=== PATIENT | male | born 1980 | race Caucasian/White ===

== ENCOUNTER 2025-06-02 10:18 | Emergency (ER) | payer SELFPAY ==
[2025-06-02 10:20] VITALS: BP 146/89; PULSE 97; RESP 16; TEMP 36.6; O2SAT 99; BMI 29.5
[2025-06-02 10:24] VITALS: BP 142/85; PULSE 90; RESP 16; O2SAT 98
--- OUTSIDE RECORDS SUMMARY | 2025-06-02 10:28 | XMS_ITS | Encounter Summary ---
Author Organization [facility] Address [address] [place] [address] Care Team Providers Care Legal Examiner Name Role Phone Unavailable Primary Care Provider Unavailabl e Encounter Details Date Type Department Care Team (Latest Contact Info) Description 08/05/2000 Outpatient Historical [facility] [address] [address] [place] [phone] Polina Hair, DO [address] [place] [address] Contusion of finger (Primary Dx) Social History Tobacco Use Types Packs/Day Years Used Date Smoking Tobacco: Never Assessed Sex and Gender Information Value Date Recorded Sex Assigned at Not on file Legal Sex Male 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
--- OUTSIDE RECORDS SUMMARY | 2025-06-02 10:28 | XMS_ITS | Encounter Summary ---
Author Organization [facility] Address [address] [place] [address] Care Team Providers Care Welder Setter Resistance Machine Name Role Phone Unavailable Primary Care Provider Unavailabl e Encounter Details Date Type Department Care Team (Latest Contact Info) Description 09/01/2004 Outpatient Historical [facility] Family Medicine [facility] [address] [place] [address] [place], CAS NO ADDRESS ON FILE STREP SORE THROAT (Primary Dx) Social History Tobacco Use Types Packs/Day Years Used Date Smoking Tobacco: Never Assessed Sex and Gender Information Value Date Recorded Sex Assigned at Not on file Legal Sex Male 5:54 AM RN ACUTE Gender Identity Not on file Sexual Orientation Not on file documented as of this encounter Plan of Treatment Not on file documented as of this encounter Visit Diagnoses Diagnosis Streptococcal sore throat- Primary documented in this encounter
--- OUTSIDE RECORDS SUMMARY | 2025-06-02 10:28 | XMS_ITS | Encounter Summary ---
Author Organization [facility] Address [address] [place] [address] Care Team Providers Care Orthoptist Name Role Phone Unavailable Primary Care Provider Unavailabl e Encounter Details Date Type Department Care Team (Latest Contact Info) Description 01/14/1999 Outpatient Historical [facility] Family Medicine [facility] [address] [phone] John Bhardwaj MD NO ADDRESS ON FILE Other specified examination (Primary Dx) Social History Tobacco Use Types Packs/Day Years Used Date Smoking Tobacco: Never Assessed Sex and Gender Information Value Date Recorded Sex Assigned at Not on file Legal Sex Male 5:54 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
--- OUTSIDE RECORDS SUMMARY | 2025-06-02 10:28 | XMS_ITS | Encounter Summary ---
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
--- OUTSIDE RECORDS SUMMARY | 2025-06-02 10:28 | XMS_ITS | Encounter Summary ---
Author Organization [facility] Address [address] [place] [address] Care Team Providers Care Pump Servicer Supervisor Name Role Phone Unavailable Primary Care Provider Unavailabl e Encounter Details Date Type Department Care Team (Latest Contact Info) Description 01/19/2001 Outpatient Historical [facility] Family Medicine [facility] [address] [phone] John Bhardwaj MD NO ADDRESS ON FILE Routine child health exam (Primary Dx) Social History Tobacco Use Types Packs/Day Years Used Date Smoking Tobacco: Never Assessed Sex and Gender Information Value Date Recorded Sex Assigned at Not on file Legal Sex Male 5:54 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
--- OUTSIDE RECORDS SUMMARY | 2025-06-02 10:28 | XMS_ITS | Encounter Summary ---
Author Organization [facility] Address [address] [place] [address] Care Team Providers Care Literary Agent Name Role Phone Unavailable Primary Care Provider Unavailabl e Encounter Details Date Type Department Care Team (Latest Contact Info) Description 08/16/2001 Outpatient Historical [facility] Family Medicine [facility] [address] [address] [place] [phone] Polina Hair, DO [address] [place] [address] Unspecified contusion of eye (Primary Dx) Social History Tobacco Use Types Packs/Day Years Used Date Smoking Tobacco: Never Assessed Sex and Gender Information Value Date Recorded Sex Assigned at Not on file Legal Sex Male 5:54 AM CARNIVAL WORKER Gender Identity Not on file Sexual Orientation Not on file documented as of this encounter Plan of Treatment Not on file documented as of this encounter Visit Diagnoses Diagnosis Unspecified contusion of eye- Primary documented in this encounter
--- OUTSIDE RECORDS SUMMARY | 2025-06-02 10:28 | XMS_ITS | Encounter Summary ---
Author Organization [facility] Address [address] [place] [address] Care Team Providers Care Data Warehouse Specialist Name Role Phone Unavailable Primary Care Provider Unavailabl e Encounter Details Date Type Department Care Team (Latest Contact Info) Description 04/21/2001 Outpatient Historical [facility] Silvestre Santana MD NO ADDRESS ON FILE Tear of medial cartilage or meniscus of knee, current (Primary Dx) Social History Tobacco Use Types Packs/Day Years Used Date Smoking Tobacco: Never Assessed Sex and Gender Information Value Date Recorded Sex Assigned at Not on file Legal 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
--- OUTSIDE RECORDS SUMMARY | 2025-06-02 10:28 | XMS_ITS | Encounter Summary ---
Author Organization [facility] Address [address] [place] [address] Care Team Providers Care Lab Tester Name Role Phone Unavailable Primary Care Provider Unavailabl e Encounter Details Date Type Department Care Team (Latest Contact Info) Description 05/16/2001 Outpatient Historical [facility] Silvestre Santana MD NO ADDRESS ON FILE Plica syndrome (Primary Dx); Tear of medial cartilage or meniscus of knee, current Social History Tobacco Use Types Packs/Day Years Used Date Smoking Tobacco: Never Assessed Sex and Gender Information Value Date Recorded Sex Assigned at Not on file Legal 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
--- OUTSIDE RECORDS SUMMARY | 2025-06-02 10:28 | XMS_ITS | Encounter Summary ---
Author Organization [facility] Address [address] [place] [address] Care Team Providers Care Eligibility Specialist Name Role Phone Unavailable Primary Care Provider Unavailabl e Encounter Details Date Type Department Care Team (Latest Contact Info) Description 01/22/2000 Outpatient Historical [facility] Family Medicine [facility] [address] [phone] John Bhardwaj MD NO ADDRESS ON FILE Other general medical examination for administrative purposes (Primary Dx) Social History Tobacco Use Types Packs/Day Years Used Date Smoking Tobacco: Never Assessed Sex and Gender Information Value Date Recorded Sex Assigned at Not on file Legal 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
--- OUTSIDE RECORDS SUMMARY | 2025-06-02 10:28 | XMS_ITS | Encounter Summary ---
Author Organization [facility] Address [address] [place] [address] Care Team Providers Care Placement Interviewer Name Role Phone Unavailable Primary Care Provider Unavailabl e Encounter Details Date Type Department Care Team (Latest Contact Info) Description 09/16/2000 Outpatient Historical [facility] Family Medicine Elise [facility] [address] [address] [place] [phone] Polina Hair, DO [address] [place] [address] Allergy, unspecified not elsewhere classified (Primary Dx) Social History Tobacco Use Types Packs/Day Years Used Date Smoking Tobacco: Never Assessed Sex and Gender Information Value Date Recorded Sex Assigned at Not on file Legal Sex Male 5:54 AM HEALTH NURSE Gender Identity Not on file Sexual Orientation Not on file documented as of this encounter Plan of Treatment Not on file documented as of this encounter Visit Diagnoses Diagnosis Allergy, unspecified not elsewhere classified- Primary documented in this encounter
--- OUTSIDE RECORDS SUMMARY | 2025-06-02 10:28 | XMS_ITS | Encounter Summary ---
Author Organization [facility] Address [address] [place] [address] Care Team Providers Care Mock Up Maker Name Role Phone Unavailable Primary Care Provider Unavailabl e Encounter Details Date Type Department Care Team (Latest Contact Info) Description 02/15/2001 Outpatient Historical [facility] Family Medicine [facility] [address] [phone] John Bhardwaj MD NO ADDRESS ON FILE Osteomalacia, unspecified (Primary Dx) Social History Tobacco Use Types Packs/Day Years Used Date Smoking Tobacco: Never Assessed Sex and Gender Information Value Date Recorded Sex Assigned at Not on file Legal Sex Male 5:54 AM MOTORIZED SQUAD CAPTAIN Gender Identity Not on file Sexual Orientation Not on file documented as of this encounter Plan of Treatment Not on file documented as of this encounter Visit Diagnoses Diagnosis Osteomalacia, unspecified- Primary documented in this encounter
--- OUTSIDE RECORDS SUMMARY | 2025-06-02 10:28 | XMS_ITS | Encounter Summary ---
Author Organization [facility] Address [address] [place] [address] Care Team Providers Care Claims Adjuster Name Role Phone Unavailable Primary Care Provider Unavailabl e Encounter Details Date Type Department Care Team (Latest Contact Info) Description 04/04/2001 Outpatient Historical [facility] Silvestre Santana MD NO ADDRESS ON FILE Pain in joint, lower leg (Primary Dx) Social History Tobacco Use Types Packs/Day Years Used Date Smoking Tobacco: Never Assessed Sex and Gender Information Value Date Recorded Sex Assigned at Not on file Legal Sex Male 5:54 AM SOFTWARE ANALYST Gender Identity Not on file Sexual Orientation Not on file documented as of this encounter Plan of Treatment Not on file documented as of this encounter Visit Diagnoses Diagnosis Pain in joint, lower leg- Primary documented in this encounter
--- OUTSIDE RECORDS SUMMARY | 2025-06-02 10:28 | XMS_ITS | Clinical Summary ---
Author Organization [facility] Address [address] [facility] Attn: Epic Prelude ADT [place] [address] Care Team Providers Care Event Crew Technician Name Role Phone Unavailable Primary Care Provider Unavailabl e Allergies Active Allergy Reactions Criticality Noted Date Comments Chloroxine Other (See Comments) 09/23/2009 Numbness and tingling in face Peanut Hives High 05/29/2019 Propoxyphene N-Acetaminophen Nausea and Vomiting Low 09/16/2009 Medications No known medications Active Problems Problem Noted Date Diagnosed Date COVID-19 virus detected 05/28/2022 Suicidal ideation 05/31/2019 Polysubstance abuse 05/31/2019 Overview (05/28/2022): Smokes marijuana and methamphetamine. Last IV drug use was 1 year ago Major depressive disorder, r ecurrent severe without psychotic features 12/16/2018 Hypertension Seizure disorder Hyperlipidemia Resolved Problems Problem Noted Date Diagnosed Date Resolved Date Severe sepsis without septic shock 05/27/2022 05/31/2022 EVERARDO (acute kidney injury) 05/27/2022 Transaminitis 05/27/2022 05/31/2022 Immunizations Immunization Administration Dates Next Due (TDVAX)(7 YRS UP) TETANUS AN D DIPHTHERIA TOXOIDS, ADSORBED (2 LF OF TETANUS TOXOID AND 2 LF OF DIPHTHERIA TOXOID), 0.5ML (PF), IM 03/12/1998 Influenza Seasonal Unspecified Formulation IM Family History Medical History Relation Name Comments Heart Disease Brother Asthma Father Heart Disease Father Hypertension Father Diabetes Mother Relation Name Status Comments Brother Father Mother Social History Tobacco Use Types Packs/Day Years Used Date Smoking Tobacco: Every Day Cigarettes Smokeless Tobacco: Never Alcohol Use Standard Drinks/Week Comments No 0 (1 standard drink = 0.6 oz pur e alcohol) Sex and Gender Information Value Date Recorded Sex Assigned at Not on file Legal Sex Male 6:28 AM POWER AND RECOVERY SUPERVISOR Gender Identity Not on file Sexual Orientation Not on file Last Filed Vital Signs Vital Sign Reading Time Taken Comments Blood Pressure 110/78 05/31/2022 7:58 AM CDT Pulse 71 05/31/2022 7:58 AM CDT Temperature 36.7 C (98 F) 05/31/2022 7:58 AM CDT Respiratory Rate 21 05/31/2022 7:58 AM CDT Oxygen Saturation 98% 05/31/2022 7:58 AM CDT Inhaled Oxygen Concentration - - Weight 86.9 kg (191 lb 8 oz) 05/31/2022 6:00 AM CDT Height 175.3 cm (5' 9 ) 05/31/2022 6:00 AM CDT Body Mass Index 28.28 05/31/2022 6:00 AM CDT Plan of Treatment Health Maintenance Due Date Last Done Comments DTAP/TDAP/TD VACCINES (2 - Tdap) 03/13/1998 03/12/1998 HEPATITIS B VACCINES (1 of 3 - 19+ 3-dose series) 2001 COVID-19 Vaccine ( season) 2024 12/16/2021, 04/01/2021, 03/03/2021 INFLUENZA VACCINE (#1) 2025 09/21/2018 HPV VACCINES Aged Out No longer eligi ble based on patient's age to complete this topic Medical Devices Implanted Type Area Hooker Inspector Device Identifier Shelf Expiration Date Model / Serial / Lot Log [id number] - Shoulder Anchors - 1 - Sut [place] Peek Pushlock 3.5mm Ar-[id number] Implanted:Qty: 1 on 10/16/2009 [place] Left: Shoulder [employer] AR-[id number] / / [id number] Log [id number] - Shoulder Anchors - 1 - Sut [place] Pushlock 3.5mm [id number] Implanted:Qty: 2 on 10/16/2009 [place] Left: Shoulder [employer] 02/19/2014 AR-[id number] / / [id number] Insurance * Guarantor: JOSÉ ANTONIO CULVER Account Type Relation to Patient Date of Phone Billing Address Personal/Family [address] [place] [address] RX [facility] (INTERNAL) [facility] Internal Plans Advance Directives For more information, please contact: [phone] * Full Code (Latest Code Status on File) Date Activated Date Inactivated Comments 05/27/2022 11:39 PM 05/31/2022 3:08 PM
--- OUTSIDE RECORDS SUMMARY | 2025-06-02 10:28 | XMS_ITS | Encounter Summary ---
Author Organization [facility] Address [address] [place] [address] Care Team Providers Care Drier And Grinder Tender Name Role Phone Unavailable Primary Care Provider Unavailabl e Encounter Details Date Type Department Care Team (Late st Contact Info) Description 08/06/2000 Outpatient Historical [facility] [address] [place] [address] Social History Tobacco Use Types Packs/Day Years Used Date Smoking Tobacco: Never Assessed Sex and Gender Information Value Date Recorded Sex Assigned at Not on file Legal 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
--- OUTSIDE RECORDS SUMMARY | 2025-06-02 10:28 | XMS_ITS | Encounter Summary ---
Author Organization [facility] Address [address] [facility] Attn: Epic Prelude ADT [place] [address] Care Team Providers Care Conveyor Installer Name Role Phone Unavailable Primary Care Provider Unavailabl e Encounter Details Date Type Department Care Team (Late st Contact Info) Description 04/19/2001 Outpatient Historical Nachtigal, Silvestre Fisher MD NO ADDRESS ON FILE Social History Tobacco Use Types Packs/Day Years Used Date Smoking Tobacco: Never Assessed Sex and Gender Information Value Date Recorded Sex Assigned at Not on file Legal Sex Male 5:54 AM SUPERVISOR WASH 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
--- OUTSIDE RECORDS SUMMARY | 2025-06-02 10:28 | XMS_ITS | Clinical Summary ---
Author Organization [facility] Address [address] [facility] [facility] [place] [address] Care Team Providers Care Environmental Program Manager Name Role Phone Unavailable Primary Care Provider Unavailabl e Allergies Active Allergy Reactions Criticality Noted Date Comments Chloroxine Other (See Comments) 09/23/2009 Numbness and tingling in face Peanut Hives High 05/29/2019 Propoxyphene N-Acetaminophen Nausea and Vomiting Low 09/16/2009 Medications albuterol (PROVENTIL,VENT HUMA) 90 mcg/Actuation Inhalation HFAA Take 2 Puffs by inhalation every 6 hours as needed. 1 Inhaler 1 1 Active escitalopram oxalate (LEXAPRO) 20 mg tablet Take 1 Tablet (20 mg) by mouth daily. 30 Tablet 06/09/2019 1:11 PM CDT 9 Active traZODone (DESYREL) 150 mg tablet Take 1 Tablet (150 mg) by mouth nightly as needed for Insomnia. 30 Tablet 06/09/2019 1:11 PM CDT 9 Active QUEtiapine (SEROquel) 25 mg tablet Take 2 Tablets (50 mg) by mouth daily at bedtime. 30 Tablet 06/09/2019 1:11 PM CDT 9 Active Active Problems Problem Noted Date Diagnosed Date Substance abuse 05/31/2019 Suicidal ideation 05/31/2019 Major depressive disorder, r ecurrent severe without psychotic features 12/16/2018 Hypertension Hyperlipidemia Seizure disorder Immunizations Immunization Administration Dates Next Due (TDVAX)(7 [...] Used Date Smoking Tobacco: Every Day Cigarettes 1 20 Smokeless Tobacco: Never Tobacco Cessation:Ready to Q uit: No; Counseling Given: No Alcohol Use Standard Drinks/Week Comments No 0 (1 standard drink = 0.6 oz pur e alcohol) Sex and Gender Information Value Date Recorded Sex Assigned at Not on file Legal Sex Male 5:54 AM INSTRUCTOR KNITTING Gender Identity Not on file Sexual Orientation Not on file Last Filed Vital Signs Vital Sign Reading Time Taken Comments Blood Pressure 107/69 06/09/2019 7:33 AM CDT Pulse 76 06/09/2019 7:33 AM CDT Temperature 36.4 C (97.6 F) 06/09/2019 7:33 AM CDT Respiratory Rate 16 06/09/2019 7:33 AM CDT Oxygen Saturation 95% 06/09/2019 7:33 AM CDT Inhaled Oxygen Concentration - - Weight 82.6 kg (182 lb) 05/30/2019 1:16 PM CDT Height 175.3 cm (5' 9 ) 05/30/2019 1:16 PM CDT Body Mass Index 26.88 05/30/2019 1:16 PM CDT Plan of Treatment Health Maintenance Due Date Last Done Comments DTAP/TDAP/TD VACCINES (2 - Tdap) 03/13/1998 03/12/19 98 HEPATITIS B VACCINES (1 of 3 - 19+ 3-dose series) 2001 INFLUENZA VACCINE (#1) 2025 09/21/2018 HPV VACCINES Aged Out No longer eligi ble based on patient's age to complete this topic Medical Devices Implanted Type Area Steward/Stewardess Night Device Identifier Shelf Expiration Date Model / Serial / Lot Log [id number] - Shoulder Anchors - 1 - Sut [place] Peek Pushlock 3.5mm Ar-1926ps Implanted:Qty: 1 on 10/16/2009 at [facility] [place] Left: Shoulder [employer] AR-[id number] / / [id number] Log [id number] - Shoulder Anchors - 1 - Sut [place] Pushlock 3.5mm Ar-[id number] Implanted:Qty: 2 on 10/16/2009 at [facility] [place] Left: Shoulder [employer] 02/19/2014 AR-[id number] / / [id number] Insurance RX SGF [employer] (INTERNAL) [facility] Internal Plans [address] [place] [address] Advance Directives For more information, please contact: [phone] * Full Code (Latest Code Status on File) Date Activated Date Inactivated Comments 05/30/2019 2:21 PM 06/09/2019 2:50 PM * Full Code Date Activated Date Inactivated Comments 12/16/2018 6:34 PM 12/21/2018 2:49 PM * Full Code Date Activated Date Inactivated Comments 10/16/2009 10:34 AM 10/17/2009 2:01 AM * Full Code Date Activated Date Inactivated Comments 10/16/2009 9:19 AM 10/16/2009 10:34 AM
--- NOTE | 2025-06-02 10:48 | ED_ITS ---
HPI - Skin/Abscess/Foreign Bdy General: Chief complaint: Skin/Abscess/Foreign Body Stated complaint: hook in left hand middle finger Time Seen by Provider: 06/02/25 10:27 History of Present Illness: This is a healthy 44-year-old man who presents emergency room with a fishhook in his left index finger. This actually occurred last night. He has been trying to get it out but cannot. He has some swelling in the finger. He is not up-to-date on his tetanus. Neurovascularly intact. No bleeding. Related Data Allergies Allergy/AdvReac Type Severity Reaction Status Date / Time No Known Allergies Allergy Verified 06/02/25 10:25 Review of Systems Narrative: Constitutional symptoms: Negative except as documented in HPI. Skin symptoms: Negative except as documented in HPI. Eye symptoms: Negative except as documented in HPI. ENMT symptoms: Negative except as documented in HPI. Respiratory symptoms: Negative except as documented in HPI. Cardiovascular symptoms: Negative except as documented in HPI. Gastrointestinal symptoms: Negative except as documented in HPI. Genitourinary symptoms: Negative except as documented in HPI. Musculoskeletal symptoms: Negative except as documented in HPI. Neurologic symptoms: Negative except as documented in HPI. Psychiatric symptoms: Negative except as documented in HPI. Endocrine symptoms: Negative except as documented in HPI. Physical Exam Narrative: EXAM NARRATIVE: General: Alert, no acute distress. Skin: warm and dry. Treble hook in the right index finger in the pad distally. Head: Normocephalic Neck: Trachea midline Eye: Extraocular movements are intact. Ears, nose, mouth and throat: Oral mucosa moist Respiratory: Respirations are non-labored Musculoskeletal: Normal ROM Gastrointestinal: Abdomen does not appear distended Neurological: Alert and oriented, No focal neurological deficit observed. Psychiatric: Cooperative, appropriate mood & affect. Course Vital Signs: Vital signs: Vital Signs Temperature 97.8 F 06/02/25 10:20 Pulse Rate 97 06/02/25 10:20 Respiratory Rate 16 06/02/25 10:20 Blood Pressure 146/89 06/02/25 10:20 Pulse Oximetry 99 06/02/25 10:20 Oxygen Delivery Me thod Room Air 06/02/25 10:20 MDM - Skin/Abscess/Foreign Bdy Medicial Decision Making Foreign body removal Time: 10:45 AM Confirmed correct: Patient, procedure, sight. Consent: Patient Indication: foreign body, fishhook Location: Right index finger Pre procedure exam: Sensory intact, Procedural sedation: (repeat): 1% lidocaine without epi locally Monitoring: none Technique: Pliers used to extract fishhook Post-procedure exam: _ foreign body removed. Patient tolerated: Well Complications: None Performed by (rpt): Self Assessment and plan: [place] in the index finger ?Tetanus vaccine was administered - Discharged home - Discussed plan with patient. Answered any questions. - Evaluation and treatment of this problem were appropriate in the emergency setting. No radiology studies performed this visit Discharge Plan Discharge Patient Disposition: Home Clinical Impression: Fish hook in finger Condition: Stable Discharge Orders: Discharge ED (Routine); Ordered 06/02/25 Ordered By: Zoraida Lopez Referrals: Sandra Jaime DO [Primary Care Provider, Family Practice] Discharge Diet: Usual diet Discharge Activity: Increase activity as tolerated Patient Instructions: [place] Injuries, Opioid Safety, Pain Management, Patient Portal & Megan Instructions Activity Restrictions/Additional Instructions: Thank you for choosing [facility] for your healthcare needs today. You have been screened and evaluated and felt safe for discharge. Health conditions do change or evolve sometimes and as such it is important that you follow up with your Primary Doctor to be re checked, 3-5 days is a general good time frame for follow up. 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
[2025-06-02] MEDS: tetanus-dipt-pertussis 0.5 mL SDV IM (10:59)
[2025-06-02 11:15] VITALS: BP 145/87; PULSE 98; O2SAT 99
== END 2025-06-02 11:16 | disposition home or self-care (01) ==
PROVIDERS: Emergency Provider Emergency Medicine; PCP Family Medicine
DX: S61.241A Puncture wound with foreign body of left index finger without damage to nail, initial encounter (principal); W45.8XXA Other foreign body or object entering through skin, initial encounter
CPT/HCPCS: 90471; 90715; 99283; J9999